=== PATIENT | male | born 1945 | race Caucasian/White ===

== ENCOUNTER → 2018-12-17 | Outpatient (CLI) | payer OTHER | END | disposition home or self-care (01) | LOC: PETCFH 12:52 | PROVIDERS: ATTEND Internal Medicine | DX: C21.0 Malignant neoplasm of anus, unspecified (principal); I10 Essential (primary) hypertension; F20.1 Disorganized schizophrenia; Z86.010 Personal history of colon polyps | CPT/HCPCS: 78815; A9552 ==